=== PATIENT | male | born 1960 | race Caucasian/White ===

== ENCOUNTER 2018-02-17 15:27 | Emergency (ER) | payer OTHER ==
[~2018-02-17] VITALS: Ht 170.2 cm; Wt 77.1 kg
[~2018-02-17 15:27] MED LIST: AMBIEN 5 MG TABL5 M1 PO; ASPIRIN81 M2 PO; ATIVAN0.5 MG PO; CELEXA 10 MG TA10 M1 PO; KEPPRA 500 MG500 M1 PO; NORVASC10 MG PO; PLAVIX 75 MG TA75 M1 PO; RANITIDINE 150150 M1 PO; SENNA S TABLET1 EACH PO; TIZANIDINE HCL4 M1 PO
[2018-02-17 16:59] LABS: ABSOLUTE NEUTROPHILS 5.6 thou/uL (1.4-8.2); BASOPHILS 0.4 % (0.0-2.0); EOSINOPHILS 1.6 % (0.0-3.0); HEMATOCRIT 44.9 % (42.0-52.0); HEMOGLOBIN 15.1 gm/dL (14.0-18.0); LYMPHOCYTES 24.5 % (24.0-44.0); MCH 30.8 pg (26.0-34.0); MCHC 33.7 g/dL (28.0-37.0); MCV 91.4 fL (80.0-100.0); MONOCYTES 8.9 % (1.0-8.0); PLATELET COUNT 302 thou/uL (150-400); POLYS 64.6 % (36.0-66.0); RBC 4.91 mil/uL (4.50-6.00); RDW 12.3 % (10.5-14.5); WBC 8.7 thou/uL (4.0-11.0)
[2018-02-17 17:05] LABS: CREATININE 0.8 mg/dL (0.7-1.3); POTASSIUM 3.9 mmol/L (3.5-5.1)
[2018-02-17 17:10] LABS: ALBUMIN 4.2 g/dL (3.4-5.0); DIRECT BILIRUBIN 0.1 mg/dL (<0.1-0.3); TOTAL BILIRUBIN 0.5 mg/dL (<0.1-1.0); TOTAL PROTEIN 7.7 g/dL (6.4-8.2)
[2018-02-17 17:26] VITALS: BP 135/88
== END 2018-02-17 17:27 | disposition home or self-care (01) ==
LOC: ER 15:27
PROVIDERS: Emergency Medicine
DX: R53.1 Weakness (principal); Z87.891 Personal history of nicotine dependence; R20.0 Anesthesia of skin

== ENCOUNTER 2019-02-27 18:03 | Emergency (ER) | payer OTHER ==
[~2019-02-27] VITALS: Ht 170.2 cm; Wt 81.7 kg
[2019-02-27 18:11] VITALS: BP 168/79
[2019-02-27] MEDS ORDERED: ERYTHROMYCIN E3.5 G3 OPHTHALMIC (18:34)
== END 2019-02-27 18:45 | disposition home or self-care (01) ==
LOC: ER 18:03
DX: H16.8 Other keratitis (principal); Z87.891 Personal history of nicotine dependence; Z86.73 Personal history of transient ischemic attack (TIA), and cerebral infarction without residual deficits